=== PATIENT | male | born 1940 | race Hispanic/Latino ===

== ENCOUNTER 2019-01-07 08:18 | Emergency (ER) | payer OTHER ==
[~2019-01-07] VITALS: Ht 167.6 cm; Wt 108.9 kg
[~2019-01-07 08:18] MED LIST: AMLODIPINE BESYLATE PO; ASPIRIN PO; ASPIRIN81 MG PO; DOXYCYCLINE HY100 MG PO; GLIPIZIDE PO; INVOKANA PO; JANUVIA PO; LIPITOR20 MG PO; LISINOPRIL PO; METOPROLOL PO; METOPROLOL SUCC25 MG PO; UNKNOWN MEDICATIONS; VITAMIN E PO; [UNRECOGNIZED DRUG - REMARK]
--- OUTSIDE RECORDS SUMMARY | 2019-01-07 08:21 | XMS REPORT | Summary of Care ---
Author Author Elizabeth Carballo M.A. Organization Unknown Address Unknown Phone Unavailable Care Team Providers Care Process Server Name Role Phone Elizabeth Carballo M.A. Unavailable Unavailable YEH D.OTYLER Oliveira Unavailable Unavailable YEH DO [facility], ALPESHFREDDY Unavailable Unavailable Unavailable Unavailable Functional Status Name Dates Details Functional status health issues are not documented Status: Name Dates Details Cognitive status health issues are not documented Status: Problems Name Dates Details Tinea pedis of left foot (110.4, B35.3) Status: Active Need for vaccination with 13-polyvalent pneumococcal conjugate vaccine (V03.82, Z23) Status: Active Diabetes mellitus type 2, controlled (250.00, E11.9) Status: Active Hyperlipidemia (272.4, E78.5) Status: Active BPH without urinary obstruction (600.00, N40.0) Status: Active Medications Name Dates Details glipiZIDE 10 MG Oral Tablet Take 1 tablet by mouth twice a day Quantity: 180 YEH D.O., ALPESH-WHITNEY * Start : 14-Oct-2018 Active Lumigan 0.01 % Ophthalmic Solution INSTILL 1 DROP INTO BOTH EYES ONCE DAILY IN THE EVENING. * Refills: 0 * Start : 14-Oct-2018 Active 2.5 ML Bottle Clotrimazole 1 % External Cream APPLY SPARINGLY TO AFFECTED AREA(S) 2 TIMES DAILY. * Quantity: 1 Refills: 0 YEH D.O., ALPESH-WHITNEY * Start : 14-Oct-2018 Active 45 GM Tube Dorzolamide HCl-Timolol Mal 22.3-6.8 MG/ML Ophthalmic Solution INSTILL 1 DROP INTO BOTH EYES 2 TIMES DAILY. * Refills: 0 * Start : 14-Oct-2018 Active 10 ML Bottle Atorvastatin Calcium 10 MG Oral Tablet TAKE 1 TABLET BY MOUTH EVERY DAY * Quantity: 90 Refills: 1 YEH D.O., ALPESH-WHITNEY * Start : 14-Oct-2018 Active Oxybutynin Chloride 5 MG Oral Tablet 1 tablet twice a day * Quantity: 180 Refills: 0 YEH D.O., TYLER * Start : 14-Oct-2018 Active Invokana 300 MG Oral Tablet TAKE 1 TABLET BY MOUTH EVERY DAY * Quantity: 90 Refills: 1 YEH D.O., TYLER * Start : 14-Oct-2018 Active Metoprolol Succinate ER 50 MG Oral Tablet Extended Release 24 Hour TAKE 1 TABLET BY MOUTH EVERY DAY * Refills: 0 * Start : 14-Oct-2018 Active 100 Tablet Bottle Lisinopril 20 MG Oral Tablet TAKE 1 TABLET TWICE DAILY * Quantity: 180 Refills: 1 * Start : 14-Oct-2018 Active amLODIPine Besylate 10 MG Oral Tablet TAKE 1 TABLET DAILY * Quantity: 30 Refills: 2 * Start : 14-Oct-2018 Active Aspirin 81 MG Oral Tablet Chewable CHEW AND SWALLOW 1 TABLET DAILY. * Refills: 0 * Start : 14-Oct-2018 Active Vitamin E 400 UNIT Oral Tablet TAKE 1 TABLET DAILY. * Refills: 0 * Start : 14-Oct-2018 Active Victoza 18 MG/3ML Subcutaneous Solution Pen-injector inject SC 1.8 mg/day * Quantity: 1 Refills: 5 YEH D.O., TYLER * Start : 23-Oct-2018 Active 2 x 3 ML Pen OneTouch Verio In Vitro Strip USE DIRECTED. Check sugars twice daily at various times. * Quantity: 1 Refills: 1 YEH D.O., TYLER * Start : 13-Nov-2018 Active 100 Strip Box OneTouch UltraSoft Lancets USE ONE LANCET TO TEST DAILY * Quantity: 1 Refills: 1 YEH D.O., TYLER * Start : 13-Nov-2018 Active 100 Unit Box Janumet XR 100-1000 MG Oral Tablet Extended Release 24 Hour TAKE 1 TABLET BY MOUTH ONCE DAILY WITH DINNER * Quantity: 90 Refills: 1 YEH D.O., TYLER * Start : 13-Nov-2018 Active Allergies and Adverse Reactions Name Dates Details No Known Drug Allergies (Allergy) Status: Active Past Medical History Name Dates Details History of diabetes mellitus (V12.29, Z86.39) Status: Resolved History of essential hypertension (V12.59, Z86.79) Status: Resolved History of high cholesterol (V12.29, Z86.39) Status: Resolved Procedures Procedure Dates Details History of Prostate Surgery Completed Immunization Name Dates Details Fluzone High-Dose 0.5 ML Intramuscular Suspension Prefilled Syringe Lot #: [id number] on: 14-Oct-2018 Prevnar 13 Intramuscular Suspension Lot #: [id number] on: 14-Oct-2018 Family History Name Dates Details No pertinent family history (V49.89, Z78.9) Status: Active Social History Name Dates Details - Status: Name Dates Details Never smoker Vital Signs Date Test Result Details No Known Vitals to report Results Date Description Value Details Results not documented Plan of Care Name Dates Details Planned Observations Planned Goals not documented Instructions Name Dates Details Instructions not documented Encounters Appointment; TYLER KARIMI D.O. Encounter Diagnosis: Problem not documented On: 14-Oct-2018 10:00
[2019-01-07] MEDS ORDERED: ONDANSETRON HCL INJ 2MG/ML 2ML 2 MG/ML VIAL IV STA (08:33)
[2019-01-07 08:49] LABS: BASOPHILS % 0.4 % (0.0-1.0); EOSINOPHILS # (AUTO) 0.1 (0.0-0.4); EOSINOPHILS % 0.9 % (0.0-6.0); HEMATOCRIT 44.7 % (38.2-49.6); HEMOGLOBIN 15.4 g/dL (14.0-18.0); LYMPHOCYTES % 10.9 % (18.0-39.1); MEAN CORPUSCULAR HEMOGLOBIN 30.8 pg (28-32); MEAN CORPUSCULAR HGB CONC 34.5 g/dL (31-35); MEAN CORPUSCULAR VOLUME 89.4 fL (81-99); MONOCYTES # (AUTO) 0.6 (0.2-0.8); MONOCYTES % 6.5 % (4.4-11.3); NEUTROPHILS # (AUTO) 7.3 (2.1-6.9); NEUTROPHILS % 80.7 % (38.7-80.0); PLATELET COUNT 155 x10e3/uL (140-360); RED CELL DISTRIBUTION WIDTH 12.9 % (11.7-14.4)
[2019-01-07 08:57] LABS: BILIRUBIN,URINE NEGATIVE (NEGATIVE); CLARITY,URINE SL CLOUDY (CLEAR); COLOR,URINE YELLOW (YELLOW); KETONES,URINE NEGATIVE (NEGATIVE); LEUKOCYTE ESTERASE ,URINE NEGATIVE (NEGATIVE); NITRITE,URINE NEGATIVE (NEGATIVE); PROTEIN,URINE DIPSTICK 1+ (NEGATIVE); URINE UROBILINOGEN 1 mg/dL (0.2 - 1)
[2019-01-07 09:02] LABS: ALANINE AMINOTRANSFERASE 45 IU/L (0-55); ALBUMIN 3.3 g/dL (3.5-5.0); ALBUMIN/GLOBULIN RATIO 0.9 (0.8-2.0); ALKALINE PHOSPHATASE 117 IU/L (40-150); ANION GAP 12.6 mmol/L (8-16); BACTERIA,URINE RARE /HPF; BLOOD UREA NITROGEN 11 mg/dL (7-26); BUN/CREATININE RATIO 13 (6-25); CALCIUM 9.2 mg/dL (8.4-10.2); CARBON DIOXIDE 24 mmol/L (22-29); CHLORIDE 103 mmol/L (98-107); CREATININE, SERUM 0.82 mg/dL (0.72-1.25); EPITHELIAL CELLS,URINE RARE /LPF; EST GLOMERULAR FILTRATION RATE > 60 ML/MIN (60-); GLUCOSE 252 mg/dL (74-118); POTASSIUM 4.6 mmol/L (3.5-5.1); SODIUM 135 mmol/L (136-145)
[2019-01-07 09:19] LABS: AMYLASE 37 U/L (25-125); LIPASE 14 U/L (8-78)
--- NOTE | 2019-01-07 10:11 | Diagnostic Imaging Report ---
EXAMINATION: CT of the abdomen and pelvis without contrast. TECHNIQUE: Spiral CT images of the abdomen and pelvis were performed from the lung bases to the lesser trochanters. No intravenous contrast was given per renal stone protocol. Coronal and sagittal reformatted images were obtained. COMPARISON: None. CLINICAL HISTORY:Right flank pain, hematuria DISCUSSION: ABSENCE OF INTRAVENOUS CONTRAST DECREASES SENSITIVITY FOR DETECTION OF FOCAL LESIONS AND VASCULAR PATHOLOGY. ABDOMEN/PELVIS: LOWER THORAX: Coronary artery calcifications. Reticular opacities in the lung bases may reflect atelectasis or age-related fibrotic change. HEPATOBILIARY:Nodular hepatic contour with hypertrophy of the left lobe compatible with cirrhosis. 1 cm hypoattenuating lesion in segment VIII/V measuring 5-10 Hounsfield units in attenuation, compatible with a simple cyst. No additional focal hepatic lesion. No intrahepatic biliary dilatation. Multiple radiopaque gallstones without pericholecystic inflammation. SPLEEN: The spleen is enlarged, measuring 14.5 cm in oblique craniocaudal dimension. PANCREAS: No focal masses or ductal dilatation. ADRENALS: No adrenal nodules. KIDNEYS/URETERS: No hydronephrosis. No renal, ureteral, or bladder calculi. No gross renal mass lesion. PELVIC ORGANS/BLADDER: Urinary bladder is incompletely distended and poorly evaluated. Prostate and seminal vesicles appear normal. PERITONEUM/RETROPERITONEUM: Small amount of free pelvic fluid, average attenuation 0-5 Hounsfield units. LYMPH NODES: No pelvic sidewall, retroperitoneal, or mesenteric lymphadenopathy. VESSELS: Limited evaluation without intravenous contrast. Atherosclerotic calcification of the abdominal aorta and iliac arterial systems without aneurysmal dilatation. Bulky calcified plaque in the right common femoral artery (series 3 image 186). GI TRACT: The large bowel shows no evidence of distention or wall thickening. The distal sigmoid colon and rectum are collapsed and poorly evaluated. Multiple diverticula along the descending and proximal sigmoid colon without wall thickening or adjacent inflammatory change. Appendix is normal. The stomach is collapsed with prominent rugal folds. No small bowel dilatation to suggest obstruction. BONES AND SOFT TISSUES: No osseous destructive lesions. Multilevel degenerative disc disease and facet arthropathy of the thoracic and lumbar spine. Nonspecific subcutaneous fat stranding along the low anterior abdominal wall. IMPRESSION: No acute intra-abdominal or pelvic CT abnormalities. No urolithiasis per clinical query. Cirrhosis with portal hypertension evidenced by splenomegaly and small volume ascites. Cholelithiasis. Large bowel diverticulosis without findings of diverticulitis. Atherosclerotic vascular disease with bulky calcified plaque in the partially visualized right common femoral artery. Correlate for symptoms of claudication. Signed by: Dr. Ángel Le M.D. on 01/07/2019 10:08 AM
--- NOTE | 2019-01-07 10:16 | Diagnostic Imaging Report ---
EXAMINATION: PA and lateral views of the chest. COMPARISON: CT abdomen and pelvis same day CLINICAL HISTORY: Shortness of breath DISCUSSION: The lungs are well-inflated. Coarse reticular opacities project over the lung bases. Calcified granuloma left lung apex. No focal airspace consolidation, pleural effusion, or pneumothorax. Atherosclerotic calcification of the thoracic aorta. Apparent enlargement of the cardiac silhouette shown to represent prominent epicardial fat on comparison CT same day. Multilevel degenerative disc disease of the thoracic spine. IMPRESSION: Coarse reticular opacities in the lung bases may reflect atelectasis or age-related fibrotic change. Signed by: Dr. Ángel Le M.D. on 01/07/2019 10:13 AM
[2019-01-07 12:27] VITALS: BP 156/71
== END 2019-01-07 12:25 | disposition home or self-care (01) ==
LOC: ER 08:18
DX: K80.20 Calculus of gallbladder without cholecystitis without obstruction (principal)
CPT/HCPCS: 36415; 71046; 74176; 80053; 81001; 82150; 83690; 83880; 85025; 99284; J2405